=== PATIENT | male | born 1945 | race Caucasian/White ===

== ENCOUNTER 2020-03-31 19:09 | Inpatient (IN) | payer MEDICARE ==
[2020-03-31] MEDS ORDERED: Labetalol HCl 100 MG/20 ML VIAL SLOW IVP PRN (20:03)
[2020-03-31] MEDS ORDERED: Docusate 100 MG CAP PO PRN (20:03)
[2020-03-31] MEDS ORDERED: Acetaminophen 325 MG TAB PO PRN (20:03)
[2020-03-31] MEDS ORDERED: hydrALAZINE 20 MG/ML VIAL SLOW IVP PRN (20:07)
[2020-03-31] MEDS ORDERED: Sodium Chloride 0.9% 1,000 ML IV SCH (20:15)
--- NOTE | 2020-03-31 20:15 | CON ---
DATE OF CONSULTATION: 03/31/2020 CHIEF COMPLAINT: Fall. HISTORY OF PRESENT ILLNESS: Mr. Macario is a 74-year-old gentleman, who reports that he slipped on ice Friday, hitting the back of his head. On Friday, he states that he had loss of consciousness and on Friday, he was vomiting. Reports he is on Plavix. Head CT indicated a 1 x 0.8 cm left frontal lobe intraparenchymal hemorrhage. There is some evidence of subarachnoid blood along the medial left frontal sulci. The patient was transferred from the [facility] to [facility] due to intracranial bleed. He received 1 unit of platelets in the emergency department. REVIEW OF SYSTEMS: Negative unless stated in the above HPI. PAST MEDICAL HISTORY: Hypertension, hyperlipidemia, TIA. PAST SURGICAL HISTORY: Carpal tunnel, trigger finger, prostate, and left knee. SOCIAL HISTORY: Drinks daily about 2 to 3 beers a day. Quit smoking in 1981. Smoked 1-1/2 packs, 5 to 6 years. Denies illicit drug use. FAMILY HISTORY: Father at 96 due to old age and mother at 96 due to old age. MEDICATIONS: 1. Atorvastatin 20 mg. 2. Plavix 75 mg. 3. Lisinopril 20 mg. 4. Metformin 500 mg. ALLERGIES: NO KNOWN DRUG ALLERGIES. PHYSICAL EXAMINATION: VITAL SIGNS: Blood pressure 169/83, pulse 68, respiratory rate 18, and temperature 98.4. HEENT: Pupils are equal. Extraocular movements are intact. NECK: Soft, supple. No masses are noted. Range of motion is intact and slightly painful. NEUROLOGICAL: Awake, alert, and oriented x3. Memory, attention, and fund of knowledge are normal. Cranial nerves are grossly intact. GCS 15. EXTREMITIES: He has free active range of motion on all extremities. No focal motor weakness. No reflex asymmetry. LABORATORY DATA: WBC is 6, platelet 170. PT 10.6, INR 1, and PTT 26.7. Sodium 139. IMAGING: As stated in the above HPI. ASSESSMENT: 1. Intraparenchymal hemorrhage in the left frontal lobe. 2. Subarachnoid blood along the medial left frontal sulci. PLAN: Repeat CT in the morning. SBP less than 140. Stop Plavix for 2 weeks. If scan shows improvement or no change, we will transfer care to the Trauma Service. Supportive care. No intracranial surgery at this time. We will have him follow up in 2 to 3 weeks in our clinic and repeat the scan prior to the visit. Job ID: [id number] MTDD
[2020-03-31] MEDS ORDERED: Dextrose 5% in Water 1,000 ML IV PRN (21:43)
[2020-03-31] MEDS ORDERED: Dextrose 50% Abboject 50 ML SYRINGE SLOW IVP PRN (21:43)
[2020-03-31] MEDS ORDERED: Insulin Regular 300 UNITS/3 ML VIAL SC PRN ×2 (21:43)
[2020-03-31] MEDS ORDERED: Ondansetron ODT 4 MG TAB PO PRN (21:43)
[2020-03-31 21:48] VITALS: BMI 35.9
[2020-03-31] MEDS: levETIRAcetam 500 MG TAB PO SCH (21:50)
[2020-03-31 23:22] LABS: SARS-CoV-2 NAA Rapid Test Not Detected (NotDetected)
--- NOTE | 2020-04-01 04:26 | HP ---
CHIEF COMPLAINT: Dizziness. HISTORY OF PRESENT ILLNESS: A 74-year-old male, past medical history of TIA on Plavix, last taken yesterday afternoon, history of hypertension and hyperlipidemia. The patient fell last Friday when he was walking out to his garage to take out the trash. His feet slipped out under him and his head hit the cement behind him. The patient reached back and touched his head and had a large amount of blood on his head with a small knot. The patient woke up Friday morning and vomited once clear liquid. The patient is in the emergency department today because the dizziness has gotten so severe that he is not able to move around with loosening his balance. The patient was seen at [facility]. CT of the head was done which showed intraparenchymal hemorrhage in the left frontal lobe and subarachnoid blood along the medial left frontal sulci. The patient was transferred to [facility] for neurosurgery evaluation. In the emergency department, the patient was given platelets. The patient denies loss of consciousness, headache, blurry vision, chest pain, shortness of breath. REVIEW OF SYSTEMS: Negative except for what is above in the HPI. PAST MEDICAL HISTORY: Pertinent for TIA, hypertension, hyperlipidemia. PAST SURGICAL HISTORY: Carpal tunnel, prostate, and left knee. SOCIAL HISTORY: Drinks about 2 to 3 beers a day. Quit smoking in 1981. Denies drug use. FAMILY HISTORY: Lives with his at home. Father at 92 due to old age. MEDICATIONS: 1. CoQ10 200 mg. 2. Multaq 400 mg. 3. Benadryl 75 mg. 4. Lisinopril 5 mg. 5. Metformin 500 mg. 6. Atorvastatin 40 mg. 7. Gabapentin 300 mg. 8. Melatonin 5 mg. 9. Iron supplement. ALLERGIES: NO KNOWN ALLERGIES. PHYSICAL EXAMINATION: VITAL SIGNS: Blood pressure 140/80, pulse 68, respiratory rate 18, temperature 98. HEENT: Pupils equal bilaterally. Extraocular movements intact. NECK: Full passive and active range of motion. Trachea midline. No cervical tenderness, step-off, deformities. CARDIAC: Normal sinus rhythm. PULMONARY: Equal breath sounds bilaterally. No accessory muscle use. No respiratory distress. NEUROLOGIC: A and O x3. GCS of 15. Cranial nerves intact. EXTREMITIES: +5 strength upper and lower extremities. Equal passive and active range of motion. LABORATORY DATA: Hemoglobin 13, hematocrit 40, platelets 170, white blood cell count 6. Coags: PT 10.6, INR 1.0, PTT 26.7. Chemistry: Sodium 139, potassium 4.3, chloride 102, carbon dioxide 27, BUN 16, creatinine 0.99. CT, extensive extra-axial and intra-axial hemorrhage. ASSESSMENT: 1. Slip and fall. 2. Intraparenchymal hemorrhage, left frontal lobe. 3. Subarachnoid blood along the medial left frontal sulci. 4. Past medical history of hypertension, hyperlipidemia, diabetes, and neuropathy. PLAN: The patient will be transferred to the stroke floor for q. 2 hour neuro checks, head of bed elevated to 30 degrees, systolic blood pressure of less SBP <[address] in the morning. Depending on Neurosurgery input, if CT is stable, the patient will probably be able to discharge home. Hold Plavix. The patient can follow up in 2 weeks in Neurosurgery Clinic. Case is discussed with Dr. Plunkett. Job ID: [id number] MTDD
[2020-04-01 05:50] LABS: #Eosinphils 0.2 thou/uL (0.0-0.7); #Monocytes 0.7 thou/uL (0.11-0.59); #Neutrophils 4.2 thou/uL (1.40-6.50); %Basophils 0.4 % (0.0-1.0); %Lymphocytes 28.5 % (21.0-51.0); %Monocytes 9.2 % (0.0-10.0); Hemoglobin 13.3 g/dL (14.0-18.0); Mean Corpuscular HGB CONC 34.2 g/dL (32.0-36.0); Mean Corpuscular Hemoglobin 31.4 pg (27.0-31.0); Mean Platelet Volume 7.4 fL (7.4-10.4); Platelet Count 188 thou/uL (130-400); RBC Distribution Width 11.1 % (11.5-14.5); Red Blood Cell (RBC) Count 4.24 mill/uL (4.70-6.10); White Blood Cell (WBC) Count 7.1 thou/uL (4.8-10.8)
[2020-04-01 06:12] LABS: Anion Gap 14 mmol/L (10-20); BUN (Urea Nitrogen) 15 mg/dL (8.4-25.7); Calc. Creatinine Clearance 135 mL/min (70-130); Carbon Dioxide 23 mmol/L (23-31); Chloride 104 mmol/L (98-107); Glucose 159 mg/dL (83-110); Magnesium 1.5 mg/dL (1.6-2.6); Phosphorus 3.3 mg/dL (2.3-4.7); Potassium 3.9 mmol/L (3.5-5.1); Sodium 137 mmol/L (136-145)
--- NOTE | 2020-04-01 09:15 | PRG ---
DATE OF SERVICE: 04/01/2020 This is a neurosurgery progress note. I personally interviewed and examined the patient, agreed with documentation of Heber Rosado PA-C, dated 03/31/2020. Briefly, Pritesh Macario is a son of another patient of mine from years ago. He slipped on the ice this week when it was exceedingly cold here in [place] and he struck his head. Later in the week on Friday, he had some change in his level of consciousness and some vomiting. He came to the emergency department yesterday where CT examination of brain revealed some scattered traumatic subarachnoid blood, small left frontal contusion, subfalcine and parietal subdural hematoma. He was watched overnight in the ICU after a unit of platelets was given. No events have been reported. Among the electronically recorded vital signs, I do not see any data. When I see Mr. Macario in the holding room in the emergency department, he is wide awake. He is sitting up, he is watching television, he is hungry, and wants to go home. The head hurts, but it is not unbearable. He has no new neurological deficit on his examination. I reviewed this morning's CAT scan, it is the same as yesterday. Some of the traumatic subarachnoid blood has washed out. There remains a small frontal contusion without mass effect. There remains a tiny falcine subdural hematoma and a thin parietal subdural hematoma over the left hemisphere from the posterior frontal lobe back to near the occipital lobe. There is no mass effect on either. Mr. Macario does not require neurosurgical intervention. I think he is safe to be discharged home. Follow up CT scan will be done in 2 to 3 weeks. He should remain off Plavix until the followup CT scan confirms that all the blood products have restored. Our office will arrange followup. Job ID: [id number]
[2020-04-01] MEDS: levETIRAcetam 500 MG TAB PO SCH (10:00)
[2020-04-01] MEDS ORDERED: Insulin Regular 300 UNITS/3 ML VIAL ONE (10:02)
[2020-04-01] MEDS ORDERED: Magnesium Sulfate 2 GM in Sodium Chloride 0.9% 100 ML IVPB SCH (10:15)
--- NOTE | 2020-04-01 10:24 | CT ---
PRELIMINARY REPORT/[facility]/EMERGENCY AFTER HOURS PROCEDURE: EXAM: CT Head Without Intravenous Contrast. CLINICAL HISTORY: F/U IPH TECHNIQUE: Axial computed tomography images of the head/brain without intravenous contrast. COMPARISON: CT head dated 03/31/2020. FINDINGS: BRAIN: Overall stable appearance of focal area of intraparenchymal hemorrhage along the paramedian aspect of the left frontal lobe measuring approximately 1.1 x 0.9 cm in axial dimensions. A focus of parafalc ine hemorrhage along the falx. Additional stable appearance of extra-axial hemorrhage along the left parietal calvarium measuring approximately 0.6 cm in thickness. Additional lenticular extra-axial f luid collection is present along the posterior aspects of the left occipital calvarium measuring appr oximately 0.6 cm in thickness. There is mild sulcal effacement along the right cerebral lobes. No e vidence of acute herniation. No evidence of territorial infarct. VENTRICLES: Stable prominence of the ventricles and sulci compatible with age-related parenchymal volume loss. N o evidence of acute hydrocephalus. ORBITS: The orbits are unremarkable. SINUSES AND MASTOIDS: There is patchy opacification of the anterior ethmoid air cells. The remaining paranasal sinuses are patent. SOFT TISSUES: No significant facial or scalp soft tissue swelling evident. No radiopaque foreign body is seen. BONES: No new acute osseous abnormality. IMPRESSION: 1. Stable appearance of intraparenchymal hemorrhage along the paramedian left frontal lobe. 2. Stable appearance of extra-axial hemorrhage along the left parietal calvarium consistent with sma ll subdural hematoma. 3. Stable appearance of lenticular extra-axial hemorrhage along the left occipital calvarium which m ay represent small epidural hematoma. ELECTRONICALLY SIGNED BY: Darien Davis MD Apr 01, 2020 6:41:27 AM BEHAVIORAL HEALTH CASE MANAGER This report is intended for review by the ordering physician only, in accordance of law. If you recei ve this report in error, please call [facility] at [phone]. FINAL REPORT EMERGENT AFTER HOURS CT OF BRAIN PERFORMED WITHOUT CONTRAST ENHANCEMENT: HISTORY: Followup of intraparenchymal hemorrhage. COMPARISON: 03/31/2020 exam. FINDINGS: Some mild generalized ventricular and sulcal prominence. The hemorrhage located in the left parafalc ine location in the frontal lobe and the subdural blood tracking along the falx are a stable finding as compared to the prior examination. The extraaxial hemorrhage over the left posterior frontal/lizy etal region and the area of hemorrhage seen more along the left occipital lobe are also stable as com pared to that previous exam. IMPRESSION: Stable appearance to the areas of intra- and extraaxial hemorrhage. This report is in agreement with the temporary report issued by [facility]. POS: [facility] [place]
[2020-04-01] MEDS ORDERED: Magnesium 2 GM/50 ML 2 GM in Premix Bag 1 BAG IVPB SCH (10:45)
[2020-04-01] MEDS ORDERED: Magnesium 2 GM/50 ML BAG (IN WATER) ONE (11:03)
--- NOTE | 2020-04-01 13:17 | DIS ---
DATE OF ADMISSION: 03/31/2020 DATE OF DISCHARGE: 04/01/2020 ADMITTING DIAGNOSES: 1. Subfalcine hemorrhage. 2. Small subdural hemorrhage. 3. Intra-axial hemorrhage status post fall. 4. Fall on the ice. DISCHARGE DIAGNOSES: 1. Subfalcine hemorrhage. 2. Small subdural hemorrhage. 3. Extra-axial hemorrhage status post fall. 4. Fall on the ice. 5. Status post improving. ADMITTING PHYSICIAN: Nile Plunkett MD DISCHARGING PHYSICIAN: Nile Plunkett MD CONSULTING PHYSICIAN: Mingo Messer MD with Neurosurgery. PROCEDURES: None. HOSPITAL COURSE: The patient was admitted through the emergency department for the above complaints. The patient remained hemodynamically stable. His GCS was 15. Never had a loss of consciousness, struck in his head five days before. He was observed overnight q.2 hours neuro exams. Repeat head CT showed interval improvement actually in the scan. The patient was given one bag of platelets secondary to being on Plavix and his last dose was 03/31/2020. He will hold his Plavix. He has been cleared for discharge by Neurosurgery. Appreciate their recommendations and assistance. The patient will follow up with Neurosurgery in two weeks in their office, planning to call in followup with his PCP in [place]. He originally was reported to be nauseated. I talked to him about this. He is not on any medications for nausea. DISCHARGE MEDICATIONS: Going to be his home usual. Take Tylenol as needed for pain. No indication for Keppra at this time. PHYSICAL EXAMINATION: On the date of discharge, VITAL SIGNS: Asked to see the paper chart, but MAP was 82, heart rate is 80, breathing 16 times per minute, 100%. GENERAL: Awake, alert, sitting up in chair, in no acute distress. HEENT: Normocephalic. Did have small hematoma in the back of his head. No droop. NECK: Trachea is midline. RESPIRATORY: Equal rise and fall. Bilateral breath sounds are clear to auscultation in upper and lower lobes bilaterally. CARDIOVASCULAR: Regular rate and rhythm. ABDOMEN: Protuberant, large, but soft. No masses, guarding, or rigidity. Pelvis is stable. MUSCULOSKELETAL: Moves extremities well. GCS is 15. PSYCH: Normal mood and affect. DIAGNOSTIC DATA: Laboratory from today, white blood cell count 7.1, platelets 188, hemoglobin and hematocrit 13.3 and 39.0 respectively. Sodium is 137, potassium 3.9, chloride is 104, CO2 is 23, BUN is 15, creatinine 0.83, glucose is 159, Mag is 1.5, phos is 3.3. A repeat head CT shows stable appearance of the intraparenchymal hemorrhage on the paramedian left frontal lobe. Stable appearance of the extra-axial hemorrhage along the left parietal calvarium consistent with subdural and stable of the small epidural hematoma. FOLLOWUP: 1. Follow up will be with Dr. Messer in two weeks. 2. Follow up with his PCP as needed. Answered all questions of the patient and the patient's at the bedside. I have also encouraged him to reduce his alcohol consumption as this can lead to falls and discussed alcohol withdrawals with him that he does not believe that he will have, although he is going to try to reduce his alcohol intake. Given return precautions. Greater than 30 minutes was taken in discharge planning of this patient. Job ID: [id number]
== END 2020-04-01 12:31 | disposition home or self-care (01) | DRG 87 ==
LOC: ERS 19:09 → ERHOLD 20:06
PROVIDERS: ADMIT Specialist; ATTEND Specialist
PROC: 30233R1 Transfusion of Nonautologous Platelets into Peripheral Vein, Percutaneous Approach (ICD-10-PCS; principal; 2020-03-31)
DX: S06.6X0A Traumatic subarachnoid hemorrhage without loss of consciousness, initial encounter (principal); W00.0XXA Fall on same level due to ice and snow, initial encounter; Z20.822 Contact with and (suspected) exposure to COVID-19; I10 Essential (primary) hypertension; E78.5 Hyperlipidemia, unspecified; E11.40 Type 2 diabetes mellitus with diabetic neuropathy, unspecified; S06.5X0A Traumatic subdural hemorrhage without loss of consciousness, initial encounter; Z86.73 Personal history of transient ischemic attack (TIA), and cerebral infarction without residual deficits; Z79.02 Long term (current) use of antithrombotics/antiplatelets; Z87.891 Personal history of nicotine dependence; Z79.84 Long term (current) use of oral hypoglycemic drugs; Z79.899 Other long term (current) drug therapy
CPT/HCPCS: 36415; 36416; 36430; 70450; 80048; 83735; 84100; 85025; 86850; 86900; 86901; 87635; 99285; G0390; J1815; J3475; P9035; U0002; U0003; U0005

== ENCOUNTER 2020-04-20 13:19 | Outpatient (CLI) | payer MEDICARE | END 2020-04-20 13:20 | disposition home or self-care (01) | LOC: BICCT 13:19 | PROVIDERS: ATTEND Neurological Surgery | DX: S06.369A Traumatic hemorrhage of cerebrum, unspecified, with loss of consciousness of unspecified duration, initial encounter (principal); G93.89 Other specified disorders of brain | CPT/HCPCS: 70450 ==

== ENCOUNTER 2020-06-30 11:57 | Outpatient (CLI) | payer MEDICARE | END 2020-06-30 11:58 | disposition home or self-care (01) | LOC: BICCT 11:57 | PROVIDERS: ATTEND Neurological Surgery | DX: I62.03 Nontraumatic chronic subdural hemorrhage (principal) | CPT/HCPCS: 70450 ==